=== PATIENT | male | born 1990 | race Caucasian/White ===

== ENCOUNTER 2019-10-02 10:31 | Emergency (ER) | payer SELFPAY ==
[~2019-10-02] VITALS: Ht 180.3 cm; Wt 68.0 kg
[2019-10-02 10:57] VITALS: BP_SYST 126
--- NOTE | 2019-10-02 11:05 | NUR ---
Patient to ER bed 5 to gown for evaluation. Side rails up. Report given to Halima ALCOCER.
--- NOTE | 2019-10-02 11:14 | NUR ---
Patient brought self in with complain of meth use of "different kinds" per patient x 2 days ago. Patient stated he is "high." Patient incromprehensible and is a poor historian. Patient in no signs of distress but is tossing and turning in bed. Patient does not want to put gown on. Patient does not answer questions accurately. Addendum: 10/02/19 at 1123 by MARCO Note by Halima ALCOCER.
--- NOTE | 2019-10-02 11:30 | NUR ---
ER Dr. Chirinos at bedside examining patient.
[2019-10-02] MEDS ORDERED: LORazepam 1 MG TABLET PO ONE (11:45)
--- NOTE | 2019-10-02 12:46 | NUR ---
Pt standing in the room at this time, pt talking to himself at this time.
[2019-10-02 15:30] VITALS: BP_SYST 126
--- NOTE | 2019-10-02 15:30 | NUR ---
Harleen medrano. Patient does not have IV access in place.
== END 2019-10-02 15:30 | disposition left against medical advice (07) ==
LOC: SED 10:31
DX: F15.129 Other stimulant abuse with intoxication, unspecified (principal)
CPT/HCPCS: 99281